=== PATIENT | female | born 1980 | race Caucasian/White ===

== ENCOUNTER 2020-04-02 15:39 | Inpatient (IN) ==
[2020-04-02] MEDS ORDERED: Acetaminophen 325 MG TABLET PO ONE (18:05)
[2020-04-02] MEDS ORDERED: MOM Conc 10 ML UD.LIQ PO PRN (19:15)
[2020-04-02] MEDS ORDERED: *HR* LORazepam 1 MG TABLET PO PRN (19:15)
[2020-04-02] MEDS ORDERED: *HR* LORazepam 2 MG/ML VIAL IM PRN (19:15)
[2020-04-02] MEDS ORDERED: Haloperidol Lactate 5 MG/ML VIAL IM PRN (19:15)
[2020-04-02] MEDS ORDERED: haloperidoL 5 MG TABLET PO PRN (19:15)
[2020-04-03] MEDS: Acetaminophen 325 MG TABLET PO PRN ×3 (04:29→17:31)
[2020-04-03] MEDS: Mag Hydrox/Al Hydrox/Simeth 30 ML UDC PO PRN (14:43)
[2020-04-03] MEDS: Nicotine 21 MG PATCH.TD24 TD SCH (14:43)
[2020-04-03] MEDS: hydrOXYzine pamoate 25 MG CAPSULE PO PRN (21:01)
[2020-04-03] MEDS: traZODone 50 MG TABLET PO PRN (21:01)
[2020-04-04] MEDS: Acetaminophen 325 MG TABLET PO PRN ×3 (03:39→20:50)
[2020-04-04] MEDS: Nicotine 21 MG PATCH.TD24 TD SCH (09:48)
[2020-04-04] MEDS ORDERED: tiZANidine 4 MG TABLET PO PRN (13:08)
[2020-04-04] MEDS: hydrOXYzine pamoate 25 MG CAPSULE PO PRN (15:53)
[2020-04-04] MEDS: Mag Hydrox/Al Hydrox/Simeth 30 ML UDC PO PRN (17:23)
[2020-04-04] MEDS: traZODone 50 MG TABLET PO PRN (20:49)
[2020-04-05] MEDS: Acetaminophen 325 MG TABLET PO PRN ×2 (08:39→16:14)
[2020-04-05] MEDS: Nicotine 21 MG PATCH.TD24 TD SCH (08:41)
[2020-04-05] MEDS ORDERED: Ondansetron ODT 4 MG TAB.RAPDIS SL PRN (09:52)
[2020-04-05] MEDS ORDERED: QUEtiapine Fumarate 25 MG TABLET PO PRN (11:31)
[2020-04-05] MEDS: Nicotine 2 MG GUM BC PRN (16:13)
[2020-04-05] MEDS ORDERED: Melatonin 3 MG TABLET PO SCH (21:00)
[2020-04-06] MEDS: Acetaminophen 325 MG TABLET PO PRN ×3 (00:59→15:12)
[2020-04-06] MEDS: Nicotine 2 MG GUM BC PRN (09:41)
[2020-04-06 09:52] VITALS: BP 122/62
[2020-04-06] MEDS: hydrOXYzine pamoate 25 MG CAPSULE PO PRN (15:14)
== END 2020-04-06 16:25 | disposition home or self-care (01) | DRG 776 ==
LOC: EMEROOARM 15:39 → 1ANU 19:04
PROVIDERS: ADMIT Psychiatry & Neurology Psychiatry; ATTEND Psychiatry & Neurology Psychiatry